=== PATIENT | male | born 1990 | race Caucasian/White ===

== ENCOUNTER 2016-07-31 12:12 | Emergency (ER) | payer OTHER ==
[~2016-07-31] VITALS: Ht 177.8 cm; Wt 108.9 kg
[2016-07-31 12:34] VITALS: BP 131/61
--- NOTE | 2016-07-31 13:17 | NUR ---
Patient ambulated to bed 2.
--- NOTE | 2016-07-31 13:36 | NUR ---
PATIENT PRESENTS TO ED DUE C/O MID-BACK PAIN. PT STATES HE WAS LIFTING A COUCH 2 DAYS AGO AT WORK AND FELT SOMETHING PULL IN HIS MID-BACK AND HAS HAD PAIN SINCE THAT TIME. DENIES N/V/D; SKIN IS PINK/WARM/DRY; AAOX4 WITH EVEN AND STEADY GAIT; LUNGS CLEAR BL; HR EVEN AND REGULAR; PT DENIES ANY FEVER, CP, SOB, OR COUGH AT THIS TIME; PATIENT STATES PAIN OF 7/10 AT THIS TIME; PATIENT POSITIONED FOR COMFORT; HOB ELEVATED; BEDRAILS UP X2; BED DOWN. ER MD MADE AWARE OF PT STATUS.
--- NOTE | 2016-07-31 13:42 | NUR ---
DR. SIMENTAL AT BEDSIDE
[2016-07-31] MEDS ORDERED: KETOROLAC 60 MG/2 ML VIAL IM ONE (13:50)
[2016-07-31] MEDS ORDERED: IBUPROFEN 800 MG TAB PO ONE (13:55)
--- NOTE | 2016-07-31 13:59 | NUR ---
PT FOR XRAY VIA WHEELCHAIR, PT AAO.
--- NOTE | 2016-07-31 14:43 | NUR ---
Patient discharged with v/s stable. Written and verbal after care instructions given and explained. Patient alert, oriented and verbalized understanding of instructions. Ambulatory with steady gait. All questions addressed prior to discharge. ID band removed. Patient advised to follow up with PMD. Rx of MOTRIN given. Patient educated on indication of medication including possible reaction and side effects. Opportunity to ask questions provided and answered.DISCUSS WITH PT [employer] DURING LIFTING
[2016-07-31 14:44] VITALS: BP 125/58
== END 2016-07-31 14:43 | disposition home or self-care (01) ==
LOC: MED 12:19
DX: S29.012A Strain of muscle and tendon of back wall of thorax, initial encounter (principal); R03.0 Elevated blood-pressure reading, without diagnosis of hypertension; F17.200 Nicotine dependence, unspecified, uncomplicated; Z71.6 Tobacco abuse counseling; X50.0XXA Overexertion from strenuous movement or load, initial encounter; Y93.89 Activity, other specified; Y92.89 Other specified places as the place of occurrence of the external cause; Y99.8 Other external cause status

== ENCOUNTER 2019-05-25 19:05 | Emergency (ER) | payer OTHER ==
[~2019-05-25] VITALS: Ht 175.3 cm; Wt 136.1 kg
[2019-05-25 19:12] VITALS: BP 134/82
--- NOTE | 2019-05-25 19:31 | NUR ---
28 Y/O MALE PRESENTS TO ED, C/O COLD SYMPTOMS. PT STATES HAVING PRODUCTIVE COUGH FOR PAST 3 DAYS. PT DENIES ANY SOB/DIFFICULTY BREATHING. LUNG SOUNDS BILAT CLEAR. NO FEVER NOTED. PT DENIES ANY CHEST PAIN. CURRENTLY TAKES ABILIFY AND ZYPREXA. PT AT STABLE CONDITION. ERMD AWARE. WILL CONTINUE TO MONITOR.
--- NOTE | 2019-05-25 19:45 | NUR ---
PT DISCHARGED WITH PAPERWORK. RX FLONASE, LORATADINE. EDUCATED PT REGARDING MEDICATIONS AND S/E. EDUCATED PT REGARDING D/C DIAGNOSIS AND INSTRUCTIONS. PT VERBALIZED UNDERSTANDING OF TEACHING. TOLD PT TO FOLLOW UP WITH PCP AND WHEN TO RETURN TO ED. PT AT STABLE CONDITION. ALL QUESTIONS ANSWERED.
[2019-05-25 19:46] VITALS: BP 128/75
== END 2019-05-25 19:42 | disposition home or self-care (01) ==
LOC: MED 19:05
DX: J06.9 Acute upper respiratory infection, unspecified (principal)
CPT/HCPCS: 99283

== ENCOUNTER 2019-08-27 16:57 | Emergency (ER) | payer OTHER ==
[~2019-08-27] VITALS: Ht 175.3 cm; Wt 130.6 kg
[2019-08-27 17:08] VITALS: BP 119/67
--- NOTE | 2019-08-27 17:17 | NUR ---
AMBULATED TO BED 01 WITH STEADY GAIT
--- NOTE | 2019-08-27 17:19 | NUR ---
28 Y/O MALE C/O MOIST, PRODUCTIVE COUGH X 2 WKS WITH NASAL CONGESTION. DENIES SOB/CHEST PAIN. RR EVEN AND UNLABORED, NO ACCESSORY MUSCLE USE. DENIES N/V/D. NO FEVER/CHILLS. SITTING UPRIGHT AWAKE AND ALERT. VSS MEDHX: DENIES ALLERIGES: GABEA
[2019-08-27 18:19] VITALS: BP 123/70
--- NOTE | 2019-08-27 18:19 | NUR ---
Patient discharged with v/s stable. Written and verbal after care instructions given and explained REGARDING COUGH. Patient alert, oriented and verbalized understanding of instructions. Ambulatory with steady gait. All questions addressed prior to discharge. ID band removed. Patient advised to follow up with PMD. Rx of TESSALON PERLES CAPSULE given. Patient educated on indication of medication including possible reaction and side effects. Opportunity to ask questions provided and answered. PT INSTRUCTED TO SWALLOW AND NOT CHEW
== END 2019-08-27 17:39 | disposition home or self-care (01) ==
LOC: MED 16:57
DX: R05 Cough (principal)
CPT/HCPCS: 71045; 99281; 99283

== ENCOUNTER 2020-01-04 12:03 | Emergency (ER) | payer OTHER ==
[~2020-01-04] VITALS: Ht 175.3 cm; Wt 108.9 kg
[2020-01-04 12:09] VITALS: BP 154/69
--- NOTE | 2020-01-04 12:19 | NUR ---
Patient ambulated to bed 5.
--- NOTE | 2020-01-04 12:25 | NUR ---
29 y/o male from home c/o abd pain with diarrhea x 1 wk. Pt states 3/10 aching at this time. Abd soft, flat, nontender to palp. Bowel sounds hyperactive x 4 quad. Abd nontender to palp. Denies fever/chills. RR even and unlabored. Awake and alert. vss
--- NOTE | 2020-01-04 12:34 | NUR ---
Quincy Geiger at bedside examining pt
[2020-01-04 12:49] VITALS: BP 154/69
--- NOTE | 2020-01-04 12:49 | NUR ---
Patient discharged with v/s stable. Written and verbal after care instructions given and explained. Patient alert, oriented and verbalized understanding of instructions. Ambulatory with steady gait. All questions addressed prior to discharge. ID band removed. Patient advised to follow up with PMD. Rx of Loperamide hydrochloride 2mg given. Patient educated on indication of medication including possible reaction and side effects. Opportunity to ask questions provided and answered.
== END 2020-01-04 12:49 | disposition home or self-care (01) ==
LOC: MED 12:03
DX: R19.7 Diarrhea, unspecified (principal)
CPT/HCPCS: 99282

== ENCOUNTER 2020-02-29 07:29 | Emergency (ER) | payer OTHER ==
[~2020-02-29] VITALS: Ht 177.8 cm; Wt 108.9 kg
[2020-02-29 07:33] VITALS: BP 127/76
--- NOTE | 2020-02-29 07:42 | NUR ---
PT AMBULATED TO BED 4 WITH STEADY GAIT.
--- NOTE | 2020-02-29 07:45 | NUR ---
C/O DIARRHEA X2 DAYS, 5-7 EPISODES A DAY. DENIES ANY ABD PAIN, NAUSEA, VOMITING. DENIES ANY FEVER, SOB, CHILLS.PT AOX 4 AFIBRILE , AMBULATORY WITH STEADY GAIT,MOIST MUCUS MEMBRANE, PINK PALPEBRAL CONJUNCTIVA , ANICTERIC SCLERA , SCE , FLAT SOFT ABDOMEN , GOOD SKIN TURGOR . NO PMH NKA
--- NOTE | 2020-02-29 07:47 | NUR ---
DR VALVERDE AT BEDSIDE EVALUATING PT.
[2020-02-29 07:56] VITALS: BP 127/76
--- NOTE | 2020-02-29 07:57 | NUR ---
Patient discharged with v/s stable. Written and verbal after care instructions given and explained viral gastroenteritis. Patient alert, oriented and verbalized understanding of instructions. Ambulatory with steady gait. All questions addressed prior to discharge. ID band removed. Patient advised to follow up with PMD. Rx of imodium given. Patient educated on indication of medication including possible reaction and side effects. Opportunity to ask questions provided and answered.
== END 2020-02-29 07:57 | disposition home or self-care (01) ==
LOC: MED 07:29
DX: R19.7 Diarrhea, unspecified (principal)
CPT/HCPCS: 99282

== ENCOUNTER 2020-08-01 20:11 | Emergency (ER) | payer OTHER ==
[~2020-08-01] VITALS: Ht 177.8 cm; Wt 113.4 kg
[2020-08-01 20:15] VITALS: BP 140/87
--- NOTE | 2020-08-01 20:16 | NUR ---
to bed ambulatory
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
[2020-08-01] MEDS ORDERED: IBUP-1842 PO (21:23)
[2020-08-01] MEDS ORDERED: KETOROLAC 60 MG/2 ML VIAL IM ONE (21:25)
[2020-08-01 21:45] VITALS: BP 140/87
== END 2020-08-01 21:45 | disposition home or self-care (01) ==
LOC: MED 20:11
DX: S93.402A Sprain of unspecified ligament of left ankle, initial encounter (principal); R03.0 Elevated blood-pressure reading, without diagnosis of hypertension; Z79.899 Other long term (current) drug therapy; X58.XXXA Exposure to other specified factors, initial encounter; Y93.89 Activity, other specified; Y92.89 Other specified places as the place of occurrence of the external cause; Y99.8 Other external cause status
CPT/HCPCS: 73610; 96372; 99283; J1885

== ENCOUNTER 2020-10-14 00:42 | Emergency (ER) | payer OTHER ==
[~2020-10-14] VITALS: Ht 172.7 cm; Wt 133.8 kg
[~2020-10-14 00:42] MED LIST: IBUP-1842 PO
[2020-10-14 00:49] VITALS: BP 147/80
[2020-10-14] MEDS ORDERED: LID5T TP (01:16)
--- NOTE | 2020-10-14 01:32 | NUR ---
no nursing interventions ordered by Dr. Darby.
--- NOTE | 2020-10-14 01:33 | NUR ---
d/c with VSS. rx of lidocaine patch given. d/c education given. opportunity to ask questions given and answered.
== END 2020-10-14 01:33 | disposition home or self-care (01) ==
LOC: MED 00:42
DX: M25.562 Pain in left knee (principal)
CPT/HCPCS: 99282

== ENCOUNTER 2020-11-28 01:04 | Emergency (ER) | payer OTHER ==
[~2020-11-28] VITALS: Ht 177.8 cm; Wt 108.9 kg
[~2020-11-28 01:04] MED LIST changes: +LID5T TP
[2020-11-28 01:20] VITALS: BP 151/90
--- NOTE | 2020-11-28 01:20 | NUR ---
TO BED AMBULATORY
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
--- NOTE | 2020-11-28 01:54 | NUR ---
TRIED TO CALL MICKIE ROMERO TO REPORT AN INCIDENT BUT NO ANSWER. TRIED 3-4X.
[2020-11-28] MEDS ORDERED: KETOROLAC 60 MG/2 ML VIAL IM ONE (02:20)
[2020-11-28] MEDS ORDERED: IBUP-2213 PO (02:30)
[2020-11-28 02:43] VITALS: BP 151/90
== END 2020-11-28 02:43 | disposition home or self-care (01) ==
LOC: MED 01:04
DX: S03.2XXA Dislocation of tooth, initial encounter (principal); F12.90 Cannabis use, unspecified, uncomplicated; Z79.899 Other long term (current) drug therapy; Y00.XXXA Assault by blunt object, initial encounter; Y93.89 Activity, other specified; Y92.89 Other specified places as the place of occurrence of the external cause; Y99.8 Other external cause status
CPT/HCPCS: 96372; 99283; J1885

== ENCOUNTER 2021-04-09 20:43 | Emergency (ER) | payer OTHER ==
[~2021-04-09 20:43] MED LIST changes: +IBUP-2213 PO
--- NOTE | 2021-04-09 21:00 | NUR ---
PATIENT LEFT WITHOUT BEING SEEN BY DR. COLUNGA. NO FURTHER CARE PROVIDED FOR PATIENT.
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
--- NOTE | 2021-04-09 21:10 | NUR ---
CALLED FOR THE SECOND TIME , NO RESPONSE
--- NOTE | 2021-04-09 21:20 | NUR ---
CALLED FOR THE THIRD TIME , NO RESPONSE
== END 2021-04-09 21:00 | disposition left against medical advice (07) ==
LOC: MED 20:43
DX: Z53.21 Procedure and treatment not carried out due to patient leaving prior to being seen by health care provider (principal)

== ENCOUNTER 2021-06-05 13:03 | Emergency (ER) | payer OTHER ==
[~2021-06-05] VITALS: Ht 177.8 cm; Wt 129.5 kg
[2021-06-05 13:45] VITALS: BP 156/83
[2021-06-05] MEDS ORDERED: NAPR-54 PO (15:39)
== END 2021-06-05 15:49 | disposition home or self-care (01) ==
LOC: MED 13:03
DX: S16.1XXA Strain of muscle, fascia and tendon at neck level, initial encounter (principal); S09.90XA Unspecified injury of head, initial encounter; F12.10 Cannabis abuse, uncomplicated; W22.8XXA Striking against or struck by other objects, initial encounter; Y93.89 Activity, other specified; Y92.89 Other specified places as the place of occurrence of the external cause; Y99.8 Other external cause status
CPT/HCPCS: 70450; 72125; 99285

== ENCOUNTER 2021-07-06 20:26 | Emergency (ER) | payer OTHER ==
[~2021-07-06] VITALS: Ht 180.3 cm; Wt 108.9 kg
[~2021-07-06 20:26] MED LIST changes: +NAPR-54 PO
[2021-07-06 20:30] VITALS: BP 127/94
--- NOTE | 2021-07-06 20:33 | NUR ---
TO LOBBY A/W BED AMBULATORY
--- NOTE | 2021-07-06 23:00 | NUR ---
SEEN AND EXAMINED BY JOSE LUIS
[2021-07-06 23:20] VITALS: BP 119/82
--- NOTE | 2021-07-06 23:20 | NUR ---
Patient discharged with v/s stable. Written and verbal after care instructions given and explained. Patient verbalized understanding. Ambulatory with steady gait. All questions addressed prior to discharge. Advised to follow up with PMD.
== END 2021-07-06 23:20 | disposition home or self-care (01) ==
LOC: MED 20:26
DX: S53.402A Unspecified sprain of left elbow, initial encounter (principal); Z79.899 Other long term (current) drug therapy; W51.XXXA Accidental striking against or bumped into by another person, initial encounter; Y93.89 Activity, other specified; Y92.89 Other specified places as the place of occurrence of the external cause; Y99.8 Other external cause status
CPT/HCPCS: 73080; 73110; 99284

== ENCOUNTER 2021-09-21 15:19 | Emergency (ER) | payer OTHER ==
[~2021-09-21] VITALS: Ht 180.3 cm; Wt 113.4 kg
[2021-09-21 15:23] VITALS: BP 118/69
--- NOTE | 2021-09-21 16:28 | NUR ---
ATTEMPTED TO BRING PT BACK TO A BED, PT REPORTS HE IS CLAUSTROPHOBIC AND DOESNT WANT TO BE IN ROOM, PT TO WAIT IN LOBBY INSTEAD. MAISHA FISHER MADE AWARE
--- NOTE | 2021-09-21 17:22 | NUR ---
UNABLE TO GIVE URINE SPECIMEN AT THIS TIME
[2021-09-21 17:37] VITALS: BP 118/69
--- NOTE | 2021-09-21 17:46 | NUR ---
Called for pt in lobby and outside, no answer.
--- NOTE | 2021-09-21 18:06 | NUR ---
ATTEMPTED TO CALL PT BACK, NO ANSWER IN LOBBY/OUTSIDE. MAISHA FISHER MADE AWARE
--- NOTE | 2021-09-21 18:13 | NUR ---
ATTEMPTED TO CALL PT, NUMBER NO LONGER IN SERVICE. MIASHA FISHER MADE AWARE PATIENT LEFT WITHOUT BEING SEEN BY MAISHA FISHER. NO FURTHER CARE PROVIDED FOR PATIENT.
[2021-09-22] MEDS ORDERED: DOXY-487 PO (01:13)
[2021-09-22] MEDS ORDERED: CEFD300C3 PO (01:13)
== END 2021-09-21 18:13 | disposition left against medical advice (07) ==
LOC: MED 15:19
DX: N50.89 Other specified disorders of the male genital organs (principal); R31.9 Hematuria, unspecified; Z53.21 Procedure and treatment not carried out due to patient leaving prior to being seen by health care provider
CPT/HCPCS: 76870; 99281; Q0092

== ENCOUNTER 2021-09-22 00:14 | Emergency (ER) | payer OTHER ==
[~2021-09-22] VITALS: Ht 180.3 cm; Wt 108.9 kg
[2021-09-22 00:31] VITALS: BP 143/55
--- NOTE | 2021-09-22 00:37 | NUR ---
pt taken to lobby, waiting for bed.
--- NOTE | 2021-09-22 00:50 | NUR ---
pt taken to bed 12.
--- NOTE | 2021-09-22 01:08 | NUR ---
pt seen leaving facility after evaluation by Dr. Villarreal. Per Dr. Villarreal patient to be provided discharge instructions but pt left facility without insturctions.
--- NOTE | 2021-09-22 01:08 | NUR ---
Pt not found in room or in waiting area.
[2021-09-22] MEDS ORDERED: CEFD300C3 PO (01:13)
[2021-09-22] MEDS ORDERED: DOXY-487 PO (01:13)
== END 2021-09-22 01:08 | disposition left against medical advice (07) ==
LOC: MED 00:14
DX: N45.3 Epididymo-orchitis (principal); Z79.899 Other long term (current) drug therapy
CPT/HCPCS: 99281